=== PATIENT | male | born 1980 | race Caucasian/White ===

== ENCOUNTER → 2018-02-17 11:03 | Outpatient (CLI) | payer OTHER, MEDICAID, SELFPAY ==
--- NOTE | 2018-02-17 11:06 | DI.RAD.S_ITS ---
PROCEDURE: XR ACUTE ABDOMEN SERIES INDICATIONS: Abdomen pain TECHNIQUE: One view chest and two views of the abdomen were acquired. COMPARISON: [facility], , ABDOMEN 2 VIEW, 08/25/2015, 12:57. FINDINGS: Surgical changes and devices: None. Chest: Lungs are clear. Heart size is normal. No pleural effusions. No pneumoperitoneum. Abdomen: Bowel gas pattern is normal. No suspicious calcifications. Visualized solid organ contours appear normal. Bones: No suspicious bony lesions. IMPRESSION: No acute findings in the chest or abdomen. Dictated by: Leroy Carter M.D. on 02/17/2018 at 13:12 Approved by: Leroy Carter M.D. on 02/17/2018 at 13:14
[2018-02-17 11:50] LABS: Add Manual Diff / Slide Review NO; Basophils Percent Auto 0.4 % (0-2); Eosinophils Percent Auto 1.5 % (2-4); Hematocrit 46.1 % (41-53); Hemoglobin 16.1 g/dL (13.5-17.5); Lymphocytes Percent Auto 18.8 % (25-40); Mean Corpuscular Hemoglobin 32.2 PG (26-34); Mean Corpuscular Volume 91.8 fL (80-100); Monocytes Percent Auto 5.1 % (3-14); Neutrophils Absolute Auto 3400 /uL (3000-5900); Neutrophils Percent Auto 74.2 % (50-75); Platelet Count 165 X10^3/uL (150-400); Red Blood Cell Count 5.02 X10^6/uL (4.5-5.9); Red Cell Distribution Width 12.5 % (11.6-14.8); White Blood Cell Count 4.5 X10^3/uL (4.5-11.0)
[2018-02-17 11:55] LABS: Alanine Aminotransferase 50 IU/L (21-72); Albumin 4.4 g/dL (3.5-5.0); Albumin Globulin Ratio 1.2 (1.0-2.8); Alkaline Phosphatase 63 U/L (38-126); Aspartate Aminotransferase 50 IU/L (17-59); Bilirubin Total 0.8 mg/dL (0.2-1.3); Blood Urea Nitrogen 18 mg/dL (9-20); Calcium 9.8 mg/dL (8.4-10.2); Carbon Dioxide 29 mmol/L (22-32); Chloride 101 mmol/L (98-107); Estimated Glomerular Filt Rate > 60.0 mL/min (>60); Globulin 3.7 g/dL (1.7-4.1); Glucose 124 mg/dL (70-100); HEMOLYSIS 38 (0-50); Lipase 47 U/L (23-300); Potassium 4.3 mmol/L (3.4-5.1); Sodium 142 mmol/L (137-145); Total Protein 8.1 g/dL (6.3-8.2)
== END ==
PROVIDERS: PCP Family Medicine; Visit Provider Physician Assistant
DX: R10.9 Unspecified abdominal pain (principal)
CPT/HCPCS: 36415; 74022; 80053; 83690; 85025

== ENCOUNTER 2018-02-17 15:33 | Emergency (ER) | payer OTHER, MEDICAID, SELFPAY ==
[2018-02-17 15:33] VITALS: BP 130/85; PULSE 63; RESP 18; TEMP 37.1; O2SAT 97; BMI 30.4
--- NOTE | 2018-02-17 16:01 | DI.CT.S_ITS ---
PROCEDURE: CT ABDOMEN PELVIS W CON INDICATIONS: Frontal midline abdominal pain TECHNIQUE: After the administration of intravenous contrast, 5 mm thick sections acquired from the diaphragm to the symphysis. 5 mm coronal and sagittal reformats were acquired. For radiation dose reduction, the following was used: automated exposure control, adjustment of mA and/or kV according to patient size. COMPARISON: [facility], CR, XR ACUTE ABDOMEN SERIES, 02/17/2018, 10:59. [facility], CT, KIDNEY/ URETER/BLADDER, 09/29/2015, 2:00. [facility], CT, KIDNEY/ URETER/BLADDER, 10/24/2013, 2:53. [facility], CT, KIDNEY/ URETER/BLADDER, 06/11/2010, 8:50. [facility], CT, KIDNEY/ URETER/BLADDER, 11/29/2009, 8:31. FINDINGS: Image quality: Excellent. ABDOMEN: Lung bases: Lung bases are clear. Heart size is normal. Solid organs: Liver is normal in size and enhancement. Hepatic steatosis is present. Gallbladder is unremarkable. Biliary system is non dilated. Pancreas enhances normally. Spleen is normal in size and enhancement. No adrenal nodules. Kidneys demonstrate normal size and enhancement, without hydronephrosis. Peritoneum and bowel: Bowel loops are nonobstructed. There is a nondistended overall thickened appearance of the transverse colon with minimal appearance of pericolonic inflammatory change. This extends into the left colon as well. No free fluid or air. Appendix is unremarkable. Nodes and vessels: No retroperitoneal or mesenteric adenopathy by size criteria. Aorta and inferior vena cava are normal in size. Miscellaneous: No ventral hernias. PELVIS: Genitourinary: Bladder wall thickness is normal. Miscellaneous: No inguinal hernias or adenopathy. Bones: No suspicious bony lesions. No vertebral body compression fractures. IMPRESSION: 1. Thickened appearance of transverse colon with extension into the left colon a minimal appearance of pericolonic stranding. Appearance is overall highly suggestive of a colitis secondary to infection or inflammation. Ischemic colitis while possible is felt to be less likely given patient's age. Recommend correlation to potential inflammatory bowel disease. Dictated by: Megha Anaya M.D. on 02/17/2018 at 15:44 Approved by: Megha Anaya M.D. on 02/17/2018 at 15:50
[2018-02-17 16:05] LABS: Bacteria Urine None Seen; RBC Urine None Seen (0-5/HPF)
[2018-02-17 16:13] LABS: Culture Indicated Urine Specimen Cultured; Mucus Urine 3+ (Negative); WBC Urine 5-10/HPF (0-5/HPF)
[2018-02-17] MEDS: SODIUM CHLORIDE 0.9% 500 ML 1000 ML IV (16:19)
[2018-02-17] MEDS: ONDANSETRON 4 MG/2 ML INJ IV (16:36)
[2018-02-17] MEDS: HYDROMORPHONE 1 MG INJ 0.5 MG IV (16:36)
--- NOTE | 2018-02-17 17:09 | ED_ITS ---
HPI - Abdominal Pain <TIFFANI Villaseñor - Last Filed: 02/17/18 22:32> General Chief Complaint: Abdominal Pain Stated Complaint: abdominal pain and back pain Time Seen by Provider: 02/17/18 15:55 History of Present Illness HPI narrative: 37-year-old male here for complaint of generalized abdominal pain that started approximately 3-4 days ago. Patient states that he is not having any complications with bowel movements. His last bowel movement was earlier today and was normal. He denies any urinary symptoms. He denies any fevers or chills. Positive p.o. intake. He denies any trauma to the area. He denies any stressors or relievers of the pain. Patient was seen in walk-in clinic today with normal labs and negative x-ray. He reports worsening pain today so he came to the emergency room. MD complaint: abdominal pain Related Data Home Medications Medication Instructions Recorded Confirmed No Known Home Medications 02/17/18 02/17/18 Allergies Allergy/AdvReac Type Severity Reaction Status Date / Time doxycycline [DOXYCYCLINE] Allergy Severe facial Verified 02/17/18 16:17 edema gabapentin [GABAPENTIN] Allergy Mild unknown Verified 02/17/18 16:17 Review of Systems <TIFFANI Villaseñor - Last Filed: 02/17/18 22:32> Constitutional Denies chills, Denies fever(s), Denies lethargy and Denies weakness Eyes Denies change in vision, Denies eye discharge, Denies irritation and Denies loss of vision ENT Ears, Nose, Mouth, and Throat: Denies change in voice, Denies neck pain and Denies sore throat Cardiovascular Denies chest pain, Denies irregular heart rhythm, Denies lightheadedness, Denies palpitations, Denies dyspnea, Denies dyspnea on exertion and Denies orthopnea Respiratory Denies cough, Denies dyspnea, Denies dyspnea on exertion and Denies wheezing Gastrointestinal Gastrointestinal: Reports abdominal pain Genitourinary Denies hematuria, Denies flank pain, Denies urinary incontinence and Denies urinary urgency Musculoskeletal Denies neck pain Integumentary/Breasts Denies pruritus, Denies erythema, Denies rash and Denies wounds Neurologic Denies confusion, Denies loss of vision and Denies weakness Psychiatric Denies anxiety, Denies confusion, Denies depression, Denies homicidal ideation and Denies suicidal ideation Endocrine Denies palpitations Allergic/Immunologic Denies wheezing Exam <TIFFANI Villaseñor - Last Filed: 02/17/18 22:32> Initial Vital Signs Initial Vital Signs: Vital Signs Temperature 98.7 F 02/17/18 15:33 Pulse Rate 63 02/17/18 15:33 Respiratory Rate 18 02/17/18 15:33 Blood Pressure 130/85 H 02/17/18 15:33 Pulse Oximetry 97 02/17/18 15:33 Const General: cooperative and well developed Nutritional Appearance: well nourished Orientation: alert, awake, oriented x3 and not confused HENHI Mouth: oral mucosae normal and moist mucous membranes Eyes General: appearance normal, both eyes and all related structures Conjunctivae: conjunctivae normal Sclera: sclerae normal Pupils: PERRL EOM: EOM intact bilaterally Resp Effort & Inspection: normal respiratory effort, able to speak in complete sentences, no respiratory distress and no use of accessory muscles Auscultation: clear to auscultation bilaterally, no rales, no rhonchi and no wheezes Cardio Rate: regular rate Rhythm: regular rhythm Heart Sounds: no click, no gallops, no murmurs and no rubs GI Inspection: non-distended Palpation: soft, no hepatosplenomegaly, No guarding, No pulsatile mass and tender Auscultation: normal bowel sounds General: No CVA tenderness Neuro General: alert, awake and oriented x3 Extrem General: full ROM, no clubbing, cyanosis or edema, no pedal edema and no calf tenderness <Amanda Best DO - Last Filed: 02/24/18 18:50> Initial Vital Signs Initial Vital Signs: Vital Signs Temperature 98.7 F 02/17/18 15:33 Pulse Rate 63 02/17/18 15:33 Respiratory Rate 18 02/17/18 15:33 Blood Pressure 130/85 H 02/17/18 15:33 Pulse Oximetry 97 02/17/18 15:33 Course <TIFFANI Villaseñor - Last Filed: 02/17/18 22:32> Orders Ordered: Discontinued Medications Hydromorphone HCl (Dilaudid) 0.5 mg IV NOW ONE Stop: 02/17/18 16:01 Last Admin: 02/17/18 16:36 Dose: 0.5 mg Sodium Chloride (Normal Saline 0.9%) 500 mls @ 1,000 mls/hr IV BOLUS ONE Stop: 02/17/18 16:26 Last Infusion: 02/17/18 17:08 Dose: 0 mls/hr Admin: 02/17/18 16:19 Dose: 1,000 mls/hr Ondansetron HCl (Zofran) 4 mg IV NOW ONE Stop: 02/17/18 15:58 Last Admin: 02/17/18 16:36 Dose: 4 mg Vital Signs - 8 hr 02/17/18 15:33 02/17/18 17:19 02/17/18 17:24 Temperature 98.7 F Pulse Rate 63 70 70 Respiratory Rate 18 20 20 Blood Pressure 130/85 H 108/66 Blood Pressure [Right Arm] 108/66 Pulse Oximetry 97 97 <Amanda Best DO - Last Filed: 02/24/18 18:50> Orders Ordered: Discontinued Medications Hydromorphone HCl (Dilaudid) 0.5 mg IV NOW ONE Stop: 02/17/18 16:01 Last Admin: 02/17/18 16:36 Dose: 0.5 mg Sodium Chloride (Normal Saline 0.9%) 500 mls @ 1,000 mls/hr IV BOLUS ONE Stop: 02/17/18 16:26 Last Infusion: 02/17/18 17:08 Dose: 0 mls/hr Admin: 02/17/18 16:19 Dose: 1,000 mls/hr Ondansetron HCl (Zofran) 4 mg IV NOW ONE Stop: 02/17/18 15:58 Last Admin: 02/17/18 16:36 Dose: 4 mg Vital Signs - 8 hr 02/17/18 15:33 02/17/18 17:19 02/17/18 17:24 Temperature 98.7 F Pulse Rate 63 70 70 Respiratory Rate 18 20 20 Blood Pressure 130/85 H 108/66 Blood Pressure [Right Arm] 108/66 Pulse Oximetry 97 97 MDM - Abdominal Pain <TIFFANI Villaseñor - Last Filed: 02/17/18 22:32> Lab Data Lab Results 02/17/18 Range/Units Unknown Urine RBC None seen (0-5/HPF) Urine WBC 5-10/hpf H (0-5/HPF) Urine Bacteria None seen (None) Urine Mucus 3+ H (Negative) Ur Culture Indicated? Specimen cultured Micro UA Comment Not Reportable Imaging Data CT scan - abdomen: Radiologist's impression: PROCEDURE: CT ABDOMEN PELVIS W CON INDICATIONS: Frontal midline abdominal pain TECHNIQUE: After the administration of intravenous contrast, 5 mm thick sections acquired from the diaphragm to the symphysis. 5 mm coronal and sagittal reformats were acquired. For radiation dose reduction, the following was used: automated exposure control, adjustment of mA and/or kV according to patient size. COMPARISON: [facility], CR, XR ACUTE ABDOMEN SERIES, 02/17/2018, 10:59. [facility], CT, KIDNEY/ URETER/BLADDER, 09/29/2015, 2:00. [facility], CT, KIDNEY/ URETER/BLADDER, 10/24/2013, 2:53. [facility], CT, KIDNEY/ URETER/BLADDER, , 8:50. [facility], CT, KIDNEY/ URETER/BLADDER, 11/29/2009, 8:31. FINDINGS: Image quality: Excellent. ABDOMEN: Lung bases: Lung bases are clear. Heart size is normal. Solid organs: Liver is normal in size and enhancement. Hepatic steatosis is present. Gallbladder is unremarkable. Biliary system is non dilated. Pancreas enhances normally. Spleen is normal in size and enhancement. No adrenal nodules. Kidneys demonstrate normal size and enhancement, without hydronephrosis. Peritoneum and bowel: Bowel loops are nonobstructed. There is a nondistended overall thickened appearance of the transverse colon with minimal appearance of pericolonic inflammatory change. This extends into the left colon as well. No free fluid or air. Appendix is unremarkable. Nodes and vessels: No retroperitoneal or mesenteric adenopathy by size criteria. Aorta and inferior vena cava are normal in size. Miscellaneous: No ventral hernias. PELVIS: Genitourinary: Bladder wall thickness is normal. Miscellaneous: No inguinal hernias or adenopathy. Bones: No suspicious bony lesions. No vertebral body compression fractures. IMPRESSION: 1. Thickened appearance of transverse colon with extension into the left colon a minimal appearance of pericolonic stranding. Appearance is overall highly suggestive of a colitis secondary to infection or inflammation. Ischemic colitis while possible is felt to be less likely given patient's age. Recommend correlation to potential inflammatory bowel disease. Dictated by: Megha Anaya M.D. on 02/17/2018 at 15:44 Approved by: Megha Anaya M.D. on 02/17/2018 at 15:50 MDM Narrative Medical decision making narrative: CT of the abdomen was obtained and shows mild stranding along the colon indicating colitis laboratory results from earlier today were unremarkable. Patient states that he does have frequent abdominal pain issues so may be related to irritable bowel syndrome with differential of a viral in nature. [id number] Tylenol or Motrin as needed for any discomfort. Follow up with primary care provider in the next couple days for re-evaluation. For any worsening symptoms return to the emergency room. <Amanda Best DO - Last Filed: 02/24/18 18:50> Lab Data Lab Results 02/17/18 Range/Units Unknown Urine RBC None seen (0-5/HPF) Urine WBC 5-10/hpf H (0-5/HPF) Urine Bacteria None seen (None) Urine Mucus 3+ H (Negative) Ur Culture Indicated? Specimen cultured Micro UA Comment Not Reportable Discharge Plan Departure Patient Disposition: Home, Self-Care Clinical Impression: Abdominal pain Discharge Date/Time: 02/17/18 17:25 Interventions: ED Discharge Assessment Last Done: 02/17/18 17:24 Instructions: DI for Abdominal Pain-Adult Activity Restrictions/Additional Instructions: CT of the abdomen was obtained and shows mild stranding along the colon indicating colitis. With history of frequent abdominal pain issues, may be related to irritable bowel syndrome with differential of a viral in nature. [id number] Tylenol or Motrin as needed for any discomfort. Follow up with primary care provider in the next couple days for re-evaluation. For any worsening symptoms return to the emergency room. Prescriptions: No Action No Known Home Medications RF: 0 Referrals: Jefferson Perez MD [Primary Care Provider] - <Amanda Best DO - Last Filed: 02/24/18 18:50> Cosign ED Attending Arturoature Attestation: I was immediately available in the department for consultation. Documentation has been reviewed. I agree with assessment and plan.
[2018-02-17 17:19] VITALS: BP 108/66; PULSE 70; RESP 20; O2SAT 97
[2018-02-17 17:24] VITALS: BP 108/66; PULSE 70; RESP 20
== END 2018-02-17 17:25 | disposition home or self-care (01) ==
PROVIDERS: Emergency Provider Nurse Practitioner Family; Family Provider Family Medicine; PCP Family Medicine
DX: R10.9 Unspecified abdominal pain (principal)
CPT/HCPCS: 36415; 74022; 74177; 80053; 81003; 81015; 83690; 85025; 87086; 96361; 96374; 96375; 99283; 99285; J1170; J2405; Q9967

== ENCOUNTER 2024-10-10 11:45 | Emergency (ER) | payer MEDICARE, SELFPAY ==
[2024-10-10 11:55] VITALS: BP 120/73; PULSE 62; RESP 24; TEMP 36.4; O2SAT 100; BMI 23.6
--- NOTE | 2024-10-10 12:58 | ED.ABDPAIN ---
HPI - Abdominal Pain <Mike Beach PA-C - Last Filed: 10/10/24 14:59> General Chief Complaint: Abdominal Pain Stated Complaint: abd px, sob Time Seen by Provider: 10/10/24 12:31 Source: patient Mode of arrival: Ambulatory History of Present Illness HPI narrative: 44-year-old male with distant past medical history of kidney stones presents to the ED with 1 day of generalized abdominal pain, nausea, vomiting. Patient appears to be hyperventilating in the ED, endorses onset of symptoms this morning at 8:00 a.m. when he was drinking his coffee. Patient complains of generalized abdominal pain, nausea, 3 episodes of vomiting, headache. Last bowel movement was this morning, which patient states was normal. No hematochezia, melena. Patient endorses chills. Denies vomiting, chest pain, shortness of breath, diarrhea, dysuria. Patient endorses alcohol use, marijuana use. Last alcohol and marijuana use was last night. No prior abdominal surgeries. Related Data Previous Rx's Medication Instructions Recorded ondansetron 4 mg disintegrating 4 mg PO Q8H PRN nausea and 10/10/24 tablet vomiting #14 tabs Allergies Allergy/AdvReac Type Severity Reaction Status Date / Time doxycycline [DOXYCYCLINE] Allergy Severe facial Verified 03/09/18 10:31 edema gabapentin [GABAPENTIN] Allergy Mild unknown Verified 03/09/18 10:31 Review of Systems <Mike Beach PA-C - Last Filed: 10/10/24 14:59> Constitutional Constitutional: Reports chills, Denies fatigue, Denies fever(s), Denies frequent falls, Reports headache(s), Denies lethargy and Denies weakness Eyes Eyes: Denies change in vision, Denies eye discharge, Denies irritation and Denies loss of vision ENT Ears, Nose, Mouth, and Throat: Denies change in voice, Denies dizziness, Reports headache(s), Denies neck pain, Denies sore throat and Denies throat swelling Cardiovascular Cardiovascular: Denies chest pain, Denies irregular heart rhythm, Denies lightheadedness, Denies palpitations, Denies dyspnea, Denies dyspnea on exertion and Denies orthopnea Respiratory Respiratory: Denies cough, Denies dyspnea, Denies dyspnea on exertion and Denies wheezing Gastrointestinal Gastrointestinal: Reports abdominal pain, Denies change in bowel habits, Denies diarrhea, Reports nausea and Reports vomiting Musculoskeletal Musculoskeletal: Denies neck pain and Denies numbness Integumentary/Breasts Skin/Breast: Denies pruritus, Denies erythema, Denies rash and Denies wounds Neurologic Neurologic: Denies behavioral changes, Denies confusion, Denies dizziness, Denies frequent falls, Reports headache(s), Denies loss of vision, Denies numbness and Denies weakness Psychiatric Psychiatric: Denies anxiety, Denies behavioral changes, Denies confusion, Denies depression, Denies homicidal ideation and Denies suicidal ideation Endocrine Endocrine: Denies fatigue, Denies flushing and Denies palpitations Hematologic/Lymphatic Hematologic/Lymphatic: Denies easy bruising Allergic/Immunologic Allergic/Immunologic: Denies urticaria, Denies throat swelling and Denies wheezing Patient History <Mike Beach PA-C - Last Filed: 10/10/24 14:59> Medical History (Updated 10/10/24 @ 14:43 by Mike Beach PA-C) Anorexia nervosa (~2003) Seizure Kidney stones (~2014) Family History Brother Age: 46 Diabetes mellitus Father Age: 69 Diabetes mellitus Grandfather No problems noted. Social History Smoking Status: Former smoker alcohol intake: current (1-3 A WEEK ) substance use type: does not use Smoking Status: Former smoker alcohol intake frequency: 0-2 drinks per day Exam <Mike Beach PA-C - Last Filed: 10/10/24 14:59> Narrative Exam Narrative: Const General:?cooperative, healthy appearing and comfortable [facility] [place] Head:?normal to inspection Ears:?hearing grossly normal bilaterally Nose:?external nose normal Face and sinus:?normal facial exam and sinuses nontender Mouth:?oral mucosae normal Throat:?posterior oropharynx normal Eyes General:?appearance normal, both eyes and all related structures Neck Neck:?normal visual inspection and no lymphadenopathy noted Resp Effort & Inspection:?normal respiratory effort Auscultation:?clear to auscultation bilaterally Cardio Rate:?regular rate Rhythm:?regular rhythm GI Abdomen is soft, nondistended. There is generalized tenderness to palpation. Neuro General:?patient alert, patient awake and patient oriented x3 Initial Vital Signs Initial Vital Signs: Vital Signs Temperature 97.6 F 10/10/24 11:55 Pulse Rate 62 10/10/24 11:55 Respiratory Rate 24 10/10/24 11:55 Blood Pressure 120/73 10/10/24 11:55 Pulse Oximetry 100 10/10/24 11:55 Oxygen Delivery Method Room Air 10/10/24 11:55 <Amanda Best DO - Last Filed: 10/14/24 09:13> Initial Vital Signs Initial Vital Signs: Vital Signs Temperature 97.6 F 10/10/24 11:55 Pulse Rate 62 10/10/24 11:55 Respiratory Rate 24 10/10/24 11:55 Blood Pressure 120/73 10/10/24 11:55 Pulse Oximetry 100 10/10/24 11:55 Oxygen Delivery Method Room Air 10/10/24 11:55 Course <Mike Beach PA-C - Last Filed: 10/10/24 14:59> Orders Ordered: Discontinued Medications Ondansetron HCl (Ondansetron 4 Mg/2 Ml Inj) 4 mg IV NOW PRN PRN Reason: Nausea And Vomiting Last Admin: 10/10/24 13:49 Dose: 4 mg Documented By: EDGARD Ondansetron HCl (Ondansetron 4 Mg Odt) 4 mg PO NOW PRN PRN Reason: Nausea And Vomiting Vital Signs Vital signs: Vital Signs - 8 hr 10/10/24 11:55 10/10/24 14:03 Temperature 97.6 F 97.5 F L Pulse Rate 62 Respiratory Rate 24 Blood Pressure 120/73 Pulse Oximetry 100 Oxygen Delivery Method Room Air <Amanda Best DO - Last Filed: 10/14/24 09:13> Orders Ordered: Discontinued Medications Ondansetron HCl (Ondansetron 4 Mg/2 Ml Inj) 4 mg IV NOW PRN PRN Reason: Nausea And Vomiting Last Admin: 10/10/24 13:49 Dose: 4 mg Documented By: EDGARD Ondansetron HCl (Ondansetron 4 Mg Odt) 4 mg PO NOW PRN PRN Reason: Nausea And Vomiting Vital Signs Vital signs: Vital Signs - 8 hr 10/10/24 11:55 10/10/24 14:03 Temperature 97.6 F 97.5 F L Pulse Rate 62 Respiratory Rate 24 Blood Pressure 120/73 Pulse Oximetry 100 Oxygen Delivery Method Room Air MDM - Abdominal Pain <Hyma JONNY Beach - Last Filed: 10/10/24 14:59> Lab Data 10/10/24 13:40 10/10/24 13:40 Labs: Lab Results 10/10/24 10/10/24 10/10/24 Range/Units 12:00 13:40 14:15 WBC 6.5 (4.5-11.0) X10^3/uL RBC 4.71 (4.5-5.9) X10^6/uL Hgb 15.6 (13.5-17.5) g/dL Hct 45.8 (41-53) % MCV 97.3 (80-100) fL MCH 33.1 (26-34) PG MCHC 34.0 (30-36) % RDW 12.2 (11.6-14.8) % Plt Count 177 (150-400) X10^3/uL Neut % (Auto) 89.9 H (50-75) % Lymph % (Auto) 6.9 L (25-40) % [place] % (Auto) 3.0 (3-14) % Eos % (Auto) 0.1 L (2-4) % Baso % (Auto) 0.1 (0-2) % Neut # (Auto) 5800 (9971-1838) /uL Lymph # (Auto) 500 L (3066-0208) /uL [place] # (Auto) 200 (0-900) /uL Eos # (Auto) 0 (0-450) /uL Baso # (Auto) 0 (0-100) /uL Sodium 136 L (137-145) mmol/L Potassium 4.5 (3.4-5.1) mmol/L Chloride 102 (98-107) mmol/L Carbon Dioxide 25 (22-32) mmol/L BUN 19 (9-20) mg/dL Creatinine 0.91 (0.66-1.25) mg/dL Estimated GFR > 60 (>60) mL/min BUN/Creatinine Ratio 20.9 (6-22) Glucose 147 H (70-100) mg/dL Calcium 9.8 (8.4-10.2) mg/dL Total Bilirubin 1.2 (0.2-1.3) mg/dL AST 39 (17-59) IU/L ALT 36 (<50) IU/L Alkaline Phosphatase 69 (38-126) U/L Total Protein 8.7 H (6.3-8.2) g/dL Albumin 4.9 (3.5-5.0) g/dL Globulin 3.8 (1.7-4.1) g/dL Albumin/Globulin Ratio 1.3 (1.0-2.8) Lipase 60 (23-300) U/L Urine RBC 0-1/hpf (0-5/HPF) Urine WBC 0-1/hpf (0-5/HPF) Ur Squamous Epith Cells 0-1 /hpf (0-5/HPF) Urine Bacteria Occasional (0-1) (None) Ur Culture Indicated? Cult not indicated Vol Urine Centrifuged 10ml (spun) SARS-CoV-2 (PCR) Negative (Negative) Influenza A (RT-PCR) Flu a negative (NEGATIVE) Influenza B (RT-PCR) Flu b negative (NEGATIVE) RSV (PCR) Negative (Negative) Point of care testing: Urine Dip Bedside Urine Glucose Negative Bedside Urine Bilirubin - Negative Bedside Urine Ketone +++ 80 Urine Specific [place] 1.010 Bedside Urine Occult Blood - Negative Bedside Urine pH 8.0 Bedside Urine Protein +/- 15 Bedside Urine Urobilinogen - Negative Bedside Urine Nitrite - Negative Bedside Urine Leukocytes - Negative Esterase MDM Narrative Medical decision making narrative: 44-year-old male with distant past medical history of kidney stones presents to the ED with 1 day of generalized abdominal pain, nausea, vomiting. Concern for GERD versus gastritis versus peptic ulcer disease versus pancreatitis versus gastroenteritis versus UTI versus nephrolithiasis versus other intra-abdominal pathology versus URI versus other. Will obtain labs, lipase, UA, CT abdomen pelvis, respiratory panel. Will give Zofran for nausea. Will reassess. UA without UTI. Labs within normal limits. CT abdomen pelvis shows Diffuse colonic wall thickening and edema concerning for low-grade infectious or inflammatory colitis. No bowel obstruction. Normal appendix. No free fluid or free air. Discussed findings with patient. Recommend Zofran, good hydration. Recommend follow-up with PCP as soon as possible. ED return precautions discussed with patient. Patient verbalized understanding. Medical records reviewed: Yes <Amanda Best DO - Last Filed: 10/14/24 09:13> Lab Data Labs: Lab Results 10/10/24 10/10/24 10/10/24 Range/Units 12:00 13:40 14:15 WBC 6.5 (4.5-11.0) X10^3/uL RBC 4.71 (4.5-5.9) X10^6/uL Hgb 15.6 (13.5-17.5) g/dL Hct 45.8 (41-53) % MCV 97.3 (80-100) fL MCH 33.1 (26-34) PG MCHC 34.0 (30-36) % RDW 12.2 (11.6-14.8) % Plt Count 177 (150-400) X10^3/uL Neut % (Auto) 89.9 H (50-75) % Lymph % (Auto) 6.9 L (25-40) % [place] % (Auto) 3.0 (3-14) % Eos % (Auto) 0.1 L (2-4) % Baso % (Auto) 0.1 (0-2) % Neut # (Auto) 5800 (6035-5807) /uL Lymph # (Auto) 500 L (5392-4086) /uL [place] # (Auto) 200 (0-900) /uL Eos # (Auto) 0 (0-450) /uL Baso # (Auto) 0 (0-100) /uL Sodium 136 L (137-145) mmol/L Potassium 4.5 (3.4-5.1) mmol/L Chloride 102 (98-107) mmol/L Carbon Dioxide 25 (22-32) mmol/L BUN 19 (9-20) mg/dL Creatinine 0.91 (0.66-1.25) mg/dL Estimated GFR > 60 (>60) mL/min BUN/Creatinine Ratio 20.9 (6-22) Glucose 147 H (70-100) mg/dL Calcium 9.8 (8.4-10.2) mg/dL Total Bilirubin 1.2 (0.2-1.3) mg/dL AST 39 (17-59) IU/L ALT 36 (<50) IU/L Alkaline Phosphatase 69 (38-126) U/L Total Protein 8.7 H (6.3-8.2) g/dL Albumin 4.9 (3.5-5.0) g/dL Globulin 3.8 (1.7-4.1) g/dL Albumin/Globulin Ratio 1.3 (1.0-2.8) Lipase 60 (23-300) U/L Urine RBC 0-1/hpf (0-5/HPF) Urine WBC 0-1/hpf (0-5/HPF) Ur Squamous Epith Cells 0-1 /hpf (0-5/HPF) Urine Bacteria Occasional (0-1) (None) Ur Culture Indicated? Cult not indicated Vol Urine Centrifuged 10ml (spun) SARS-CoV-2 (PCR) Negative (Negative) Influenza A (RT-PCR) Flu a negative (NEGATIVE) Influenza B (RT-PCR) Flu b negative (NEGATIVE) RSV (PCR) Negative (Negative) Point of care testing: Urine Dip Bedside Urine Glucose Negative Bedside Urine Bilirubin - Negative Bedside Urine Ketone +++ 80 Urine Specific [place] 1.010 Bedside Urine Occult Blood - Negative Bedside Urine pH 8.0 Bedside Urine Protein +/- 15 Bedside Urine Urobilinogen - Negative Bedside Urine Nitrite - Negative Bedside Urine Leukocytes - Negative Esterase Discharge Plan Departure Patient Disposition: Home Clinical Impression: Infectious colitis Instructions: DI for Viral Gastroenteritis -- Adult Activity Restrictions/Additional Instructions: Were evaluated in the ED today for abdominal pain and vomiting. Your CT scan shows possible gastroenteritis/food poisoning. You are being prescribed Zofran to control the nausea and vomiting. Please continue to stay well hydrated. It is also common to experience diarrhea with gastroenteritis. A BRAT diet consisting of bananas, rice, apples, toast is recommended if you have diarrhea. Please follow-up with your PCP as soon as possible. Return to the ED if you have worsening symptoms. Prescriptions: New ondansetron 4 mg tablet,disintegrating 4 mg PO Q8H PRN (Reason: nausea and vomiting) Qty: 14 0RF Referrals: Miscellaneous,Doctor, MD [Primary Care Provider] - Stand Alone Forms: Patient Portal/API/Survey ED Sign-out <Amanda Best DO - Last Filed: 10/14/24 09:13> Cosign ED Attending Cosignature Attestation: I was available for consultation.
--- NOTE | 2024-10-10 13:07 | EKG_ITS ---
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
--- NOTE | 2024-10-10 13:08 | DI.CT.S_ITS ---
PROCEDURE: CT ABDOMEN PELVIS W CON INDICATIONS: Abdominal pain TECHNIQUE: After the administration of intravenous contrast, axial sections acquired from the lung bases to the pubic symphysis. Coronal and sagittal reformats were performed. For radiation dose reduction, the following was used: automated exposure control, adjustment of mA and/or kV according to patient size. COMPARISON: [facility], CT, CT ABDOMEN PELVIS W CON, 02/17/2018, 16:15. FINDINGS: Image quality: Diagnostic. Lower Chest: No significant findings. ABDOMEN: Liver: No solid mass. Moderate hepatic steatosis is seen. Gallbladder: No radiopaque gallstones or wall thickening. Biliary ducts: No biliary dilation. Pancreas: No ductal dilation. Spleen: Size is within normal limits. Adrenal Glands: No adrenal nodules. Kidneys and Ureters: No hydronephrosis. No solid mass. No complex renal cystic lesion which requires follow up. Stomach and Bowel: There is no bowel obstruction. No gastric or small bowel wall thickening. Appendix is visualized in right lower quadrant and is normal in size and appearance. Diffuse colonic wall thickening and edema is noted with mild pericolonic fat stranding. No abscess collection. Peritoneum: No abnormal intraperitoneal fluid. No free air. Ventral Wall: No significant ventral hernia. Abdominal Nodes: No retroperitoneal or mesenteric adenopathy by size criteria. Vessels: Aorta and inferior vena cava are normal in size. PELVIS: Pelvic Organs: Unremarkable. Bladder: No bladder wall thickening, accounting for underdistention. Pelvic Nodes: No enlarged lymph nodes. Miscellaneous: No inguinal hernias are seen. Bones: No aggressive osseous abnormality. IMPRESSION: 1. Diffuse colonic wall thickening and edema concerning for low-grade infectious or inflammatory colitis. No bowel obstruction. Normal appendix. No free fluid or free air. 2. Moderate hepatic steatosis, no discrete hepatic lesion. Dictated by: Simba Harper M.D. on 10/10/2024 at 14:08 Approved by: Simba Harper M.D. on 10/10/2024 at 14:10
[2024-10-10 13:29] LABS: Influenza A - CEPHEID Flu A NEGATIVE (NEGATIVE); Influenza B - CEPHEID Flu B NEGATIVE (NEGATIVE); Respiratory Syncytial Virus Negative (Negative)
[2024-10-10 13:35] LABS: COVID-19 CEPHEID 4-PLEX PCR Negative (Negative)
[2024-10-10 13:48] LABS: Add Manual Diff / Slide Review NO; Basophils Absolute Auto 0 /uL (0-100); Basophils Percent Auto 0.1 % (0-2); Eosinophils Absolute Auto 0 /uL (0-450); Eosinophils Percent Auto 0.1 % (2-4); Hematocrit 45.8 % (41-53); Hemoglobin 15.6 g/dL (13.5-17.5); Lymphocytes Absolute Auto 500 /uL (1100-4500); Lymphocytes Percent Auto 6.9 % (25-40); Mean Corpuscular Hemoglobin 33.1 PG (26-34); Mean Corpuscular Volume 97.3 fL (80-100); Monocytes Absolute Auto 200 /uL (0-900); Neutrophils Absolute Auto 5800 /uL (1500-7000); Neutrophils Percent Auto 89.9 % (50-75); Platelet Count 177 X10^3/uL (150-400); Red Blood Cell Count 4.71 X10^6/uL (4.5-5.9); Red Cell Distribution Width 12.2 % (11.6-14.8); White Blood Cell Count 6.5 X10^3/uL (4.5-11.0)
[2024-10-10] MEDS: ONDANSETRON 4 MG/2 ML INJ IV (13:49)
[2024-10-10 14:00] LABS: Alanine Aminotransferase 36 IU/L (<50); Albumin 4.9 g/dL (3.5-5.0); Albumin Globulin Ratio 1.3 (1.0-2.8); Alkaline Phosphatase 69 U/L (38-126); Aspartate Aminotransferase 39 IU/L (17-59); BUN Creatinine Ratio 20.9 (6-22); Bilirubin Total 1.2 mg/dL (0.2-1.3); Blood Urea Nitrogen 19 mg/dL (9-20); Calcium 9.8 mg/dL (8.4-10.2); Carbon Dioxide 25 mmol/L (22-32); Chloride 102 mmol/L (98-107); Estimated Glomerular Filt Rate > 60 mL/min (>60); Globulin 3.8 g/dL (1.7-4.1); Glucose 147 mg/dL (70-100); HEMOLYSIS < 15 (0-50); Lipase 60 U/L (23-300); Potassium 4.5 mmol/L (3.4-5.1); Sodium 136 mmol/L (137-145); Total Protein 8.7 g/dL (6.3-8.2)
[2024-10-10 14:03] VITALS: TEMP 36.4
[2024-10-10 15:02] VITALS: BP 115/75; PULSE 62; RESP 18; TEMP 36.4; O2SAT 100
[2024-10-10 15:12] LABS: Bacteria Urine Occasional (0-1); RBC Urine 0-1/HPF (0-5/HPF); Squamous Epithelial Cell Urine 0-1 /HPF (0-5/HPF); Urine Volume 10mL (spun); WBC Urine 0-1/HPF (0-5/HPF)
[2024-10-10 15:13] LABS: Culture Indicated Urine Cult Not Indicated
== END 2024-10-10 14:58 | disposition home or self-care (01) ==
PROVIDERS: Emergency Provider Student in an Organized Health Care Education/Training Program; Family Provider Family Medicine
DX: A09 Infectious gastroenteritis and colitis, unspecified (principal); R11.2 Nausea with vomiting, unspecified; R51.9 Headache, unspecified
CPT/HCPCS: 0241U; 74177; 80053; 81003; 81015; 83690; 85025; 93005; 96374; 99283; 99284; J2405; Q9967

== ENCOUNTER 2025-07-21 06:12 | Day surgery (SDC) | payer MEDICARE, SELFPAY ==
--- NOTE | 2025-07-21 | PATH_ITS ---
[facility] Accession Number: [id number] No. of containers..03 Tissue . 01 Material submitted: . PART A: gastrointestinal site - ANTRAL BIOPSY PART B: esophagus, E-G Junction - GE JUNCTION PART C: colon - COLON, DESCENDING POLYP . 01 Diagnosis: Part A: ANTRAL BIOPSY: Gastric antral mucosa with no diagnostic alterations. No Helicobacter organisms identified on H/E stain. No intestinal metaplasia, dysplasia, or malignancy identified. . 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 No dysplasia identified. . Part C: COLON, DESCENDING POLYP: Tubular adenoma. [facility] 08/03/2025 1428 Local . 01 Electronically signed: . Yury Marin MD, Pathologist NPI- [id number] . 01 Gross description: . . . . Received three formalin-filled containers, each labeled with the patient's name: . A. In a container labeled antral, the specimen consists of three fragments of kincaid soft tissue which range in size from 0.2 x 0.2 x 0.2 cm to 0.4 x 0.3 x 0.2 cm. All fragments are totally submitted in cassette A. . B. In a container labeled gastroesophageal junction, the specimen consists of two fragments of kincaid, soft tissue which range in size from 0.1 x 0.1 x 0.1 cm to 0.2 x 0.2 x 0.2 cm. All fragments are totally submitted in cassette B. . C. In a container labeled descending polyp, the specimen consists of one fragment of kincaid soft tissue which measures 0.8 x 0.7 x 0.3 cm. The specimen is totally submitted in cassette C. ([id number]) /FRR 08/03/[address] [place] [address] . 01 Pathologist provided ICD-10: D12.4, K22.70 . 01 CPT . 580672, 065583, 088871 Specimen Comment: A courtesy copy of this report has been sent to [phone] Performed at: [address] [id number] MD Yury Marin MD Phone: [phone]
[2025-07-21 07:14] VITALS: BP 109/68; PULSE 78; RESP 18; TEMP 36.6; O2SAT 100
[2025-07-21] MEDS: LACTATED RINGERS 1,000 ML 42 ML IV (07:36)
--- NOTE | 2025-07-21 07:41 | PM.PREOP ---
Pre-operative Note COVID-19 COVID-19 status: Not tested Interval Note History & Physical reviewed/Exam performed by Physician: Yes Changes to H&P: No ASA Class (for procedural sedation): II
[2025-07-21 09:01] VITALS: BP 100/69; PULSE 68; RESP 20; TEMP 36.2; O2SAT 100
--- NOTE | 2025-07-21 09:03 | PM.OP.EC ---
Operative Date/Time/Diagnoses Date of procedure: 07/21/25 Time of procedure: 09:03 Pre-op diagnosis: Family history of colon cancer and dyspepsia Post-op diagnosis: same Procedure & Clinicians Study performed: EGD and colonoscopy Same procedure(s) as scheduled: Yes Surgeon: Olegario Wren Anesthesia Type: MAC +/- Procedure Notes Procedure in detail: Surgeon: Olegario Wren MD Anesthesia: Dennis Dow MD Procedure in detail: A timeout was performed. A bite blocked was placed and monitors were attached to the patient. The patient was positioned in the left lateral decubitus position. Sedation was administered. Once the patient was sedated the endoscope was inserted through the bite block and passed through the esophagus and stomach and into the duodenum. No obvious abnormalities were seen. We then withdrew the scope into the stomach. There was mild antritis and random biopsies were taken from the antrum with cold forceps. The endoscope was retroflexed and no hiatal hernia seen. The endoscope was straightned and withdrawn into the esophagus. The GE junction appeared to be several centimeters above the diaphragmatic hiatus but there was no obvious hiatal hernia. Random biopsies were taken from the GE junction with cold forceps. The rest of the esophagus was normal. EGD findings: Mild antritis and the GE junction was several centimeters above the diaphragmatic hiatus. Next we repositioned the patient for a colonoscopy. A digital rectal exam was performed and was normal. The colonoscope was inserted and advanced to the cecum. The appendiceal orifice was identified and photographed. The scope was slowly withdrawn over greater than 6 minutes. There was a 7 mm polyp in the descending colon removed with a cold snare. The scope was retroflexed in the rectum and no other abnormalities were found. Colonoscopy findings: 7 mm polyp in the descending colon Total procedural EBL: 5 mL Scope withdrawal time: 11 minutes Sedation minutes: 30 minutes Estimated Blood Loss: 5 Complications: none Post-procedure Disposition: PACU
[2025-07-21 09:05] VITALS: BP 102/66; PULSE 74; RESP 16; O2SAT 99
[2025-07-21 09:10] VITALS: BP 113/76; PULSE 64; RESP 14; O2SAT 100
== END 2025-07-21 09:29 | disposition home or self-care (01) ==
PROVIDERS: Family Provider Family Medicine; PCP Physician Assistant; Referring Provider Surgery; Visit Provider Surgery
PROC: 0DJ08ZZ Inspection of Upper Intestinal Tract, Via Natural or Artificial Opening Endoscopic (ICD-10-PCS; CPT 45385; principal; 2025-07-21 08:15)
PROC: 0DJD8ZZ Inspection of Lower Intestinal Tract, Via Natural or Artificial Opening Endoscopic (ICD-10-PCS; CPT 45378; 2025-07-21 08:15)
DX: D12.4 Benign neoplasm of descending colon (principal); K22.70 Barrett's esophagus without dysplasia; K29.50 Unspecified chronic gastritis without bleeding; K21.9 Gastro-esophageal reflux disease without esophagitis; R10.9 Unspecified abdominal pain; K59.00 Constipation, unspecified; R10.13 Epigastric pain; Z80.0 Family history of malignant neoplasm of digestive organs; Z87.891 Personal history of nicotine dependence
CPT/HCPCS: 45385; 43239; J2704; J3010; J7120